=== PATIENT | male | born 1995 | race Caucasian/White ===

== ENCOUNTER 2016-09-20 03:31 | Emergency (ER) | payer BC ==
[~2016-09-20] VITALS: Ht 175.3 cm; Wt 72.6 kg
[~2016-09-20 03:31] MED LIST: IBUP-1955 PO
[2016-09-20] MEDS ORDERED: IV SET PRIMARY 1 EA INFUS.SET MC ONE (04:23)
[2016-09-20] MEDS ORDERED: IV NS 0.9% 1,000 ML ONE (04:23)
[2016-09-20] MEDS ORDERED: ONDANSETRON HCL/PF 4 MG/2 ML VIAL ONE (04:23)
[2016-09-20] MEDS ORDERED: ONDANSETRON HCL/PF 4 MG/2 ML VIAL IVP ONE (04:30)
[2016-09-20] MEDS ORDERED: IV NS 0.9% 1,000 ML BAG IV ONE (04:30)
[2016-09-20 04:43] LABS: BASOPHILS % (AUTO) 0.2 % (0.0-2.0); DIFF TOTAL % 100 %; EOSINOPHILS # (AUTO) 0.3 /CMM (0.0-0.7); EOSINOPHILS % (AUTO) 4.2 % (0.0-6.0); HEMATOCRIT 49 % (39-51); HEMOGLOBIN 16.5 g/dL (13.5-17.5); LYMPHOCYTES # (AUTO) 1.7 /CMM (0.8-4.8); LYMPHOCYTES % (AUTO) 20.3 % (20.0-44.0); MEAN CORPUSCULAR HEMOGLOBIN 32 PG (26.0-33.0); MEAN CORPUSCULAR HGB CONC 34 g/dl (31.0-36.0); MEAN CORPUSCULAR VOLUME 96 fL (80-96); MONOCYTES # (AUTO) 0.5 /CMM (0.1-1.30); MONOCYTES % (AUTO) 6.1 % (2.0-12.0); NEUTROPHILS # (AUTO) 5.8 /CMM (1.8-8.9); NEUTROPHILS % (AUTO) 69.2 % (43.0-81.0); PLATELET COUNT (AUTO) 345 /CMM (150-450); RED BLOOD CELL COUNT(AUTO) 5.15 MIL/uL (4.5-6.0); WHITE BLOOD COUNT (AUTO) 8.4 K/uL (4.3-11.0)
[2016-09-20 04:58] LABS: CALCIUM, SERUM 9.2 mg/dL (8.5-10.1); CREATININE 1.1 mg/dL (0.6-1.3); POTASSIUM 3.8 mmol/L (3.5-5.1)
[2016-09-20 05:04] LABS: ALBUMIN 4.4 g/dL (3.4-5.0); BILIRUBIN,DIRECT 0.2 mg/dL (0.0-0.2); BILIRUBIN,TOTAL 0.7 mg/dL (0.2-1.0); INDIRECT BILIRUBIN 0.5 mg/dL (0.0-1.1); SALICYLATE 4.2 mg/dL (2.8-20.0); TOTAL PROTEIN, SERUM 7.8 g/dL (6.4-8.2)
[2016-09-20 05:11] LABS: THYROID STIMULATING HORMONE 1.079 uIU/mL (0.358-3.74)
[2016-09-20 05:12] LABS: CANNABINOID, URINE NEGATIVE (NEGATIVE); PHENCYCLIDINE SCREEN,URINE NEGATIVE (NEGATIVE)
[2016-09-20 06:55] VITALS: BP 123/69
== END 2016-09-20 11:36 | disposition home or self-care (01) ==
LOC: ER 03:34
DX: F41.8 Other specified anxiety disorders (principal); F17.200 Nicotine dependence, unspecified, uncomplicated; F19.10 Other psychoactive substance abuse, uncomplicated
CPT/HCPCS: 36415; 80048; 80076; 80305; 84443; 85025; 93005; 96361; 96374; 99285; A4606; G0480; G0481; G0482; J2405; J7030; Z7610; G6038-TC; G6039-TC; G6040-TC

== ENCOUNTER 2024-02-10 19:24 | Emergency (ER) | payer OTHER ==
[~2024-02-10] VITALS: Ht 177.8 cm; Wt 81.6 kg
[2024-02-10] MEDS ORDERED: ONDANSETRON HCL/PF 4 MG/2 ML VIAL ONE (19:34)
[2024-02-10] MEDS: ONDANSETRON HCL/PF 4 MG/2 ML VIAL IVP ONE (19:45)
[2024-02-10] MEDS: IV NS 0.9% 1,000 ML BAG IV ONE (19:45)
[2024-02-10 20:06] LABS: BASOPHILS % (AUTO) 0.7 % (0.0-2.0); EOSINOPHILS # (AUTO) 0.4 K/uL (0.0-0.7); EOSINOPHILS % (AUTO) 7.3 % (0.0-6.0); HEMATOCRIT 40 % (39-51); HEMOGLOBIN 13.6 g/dL (13.5-17.5); LYMPHOCYTES # (AUTO) 2.1 K/uL (0.8-4.8); LYMPHOCYTES % (AUTO) 41.3 % (20.0-44.0); MEAN CORPUSCULAR HEMOGLOBIN 32 PG (26.0-33.0); MEAN CORPUSCULAR HGB CONC 34 g/dl (31.0-36.0); MEAN CORPUSCULAR VOLUME 94 fL (80-96); MONOCYTES # (AUTO) 0.3 K/uL (0.1-1.30); MONOCYTES % (AUTO) 6.6 % (2.0-12.0); NEUTROPHILS # (AUTO) 2.3 K/uL (1.8-8.9); NEUTROPHILS % (AUTO) 44.1 % (43.0-81.0); PLATELET COUNT (AUTO) 311 K/uL (150-450); RED BLOOD CELL COUNT(AUTO) 4.24 MIL/uL (4.5-6.0); RED CELL DISTRIBUTION WIDTH 14.9 % (11.5-15.0); WHITE BLOOD COUNT (AUTO) 5.2 K/uL (4.3-11.0)
[2024-02-10 20:18] LABS: CREATININE 0.9 mg/dL (0.6-1.3); POTASSIUM 3.3 mmol/L (3.5-5.1)
[2024-02-10 20:25] LABS: ALBUMIN 3.4 g/dL (3.4-5.0); BILIRUBIN,DIRECT 0.1 mg/dL (0.0-0.2); BILIRUBIN,TOTAL 0.3 mg/dL (0.2-1.0); SALICYLATE 0.6 mg/dL (2.8-20.0); TOTAL PROTEIN, SERUM 6.7 g/dL (6.4-8.2)
[2024-02-10] MEDS ORDERED: ONDA4TAB5 PO (20:35)
[2024-02-10] MEDS ORDERED: CHLO25CA22 PO (21:02)
[2024-02-11 05:18] VITALS: BP 131/71; TEMP 98.1; O2SAT 97
== END 2024-02-11 05:18 | disposition home or self-care (01) ==
LOC: ER 19:26
DX: F10.129 Alcohol abuse with intoxication, unspecified (principal); R11.0 Nausea; F32.A Depression, unspecified; F41.9 Anxiety disorder, unspecified; F19.10 Other psychoactive substance abuse, uncomplicated; F17.200 Nicotine dependence, unspecified, uncomplicated; Y90.8 Blood alcohol level of 240 mg/100 ml or more
CPT/HCPCS: 99285; 96374; 96361; 85025; 80048; 80076; 36415; 80143; 80320; J2405; J7030; G0480

== ENCOUNTER 2024-02-12 14:15 | Emergency (ER) | payer OTHER ==
[~2024-02-12] VITALS: Ht 175.3 cm; Wt 83.9 kg
[~2024-02-12 14:15] MED LIST changes: +CHLO25CA22 PO; +ONDA4TAB5 PO
[2024-02-12 19:01] VITALS: BP 120/68; TEMP 98.4; O2SAT 98
== END 2024-02-12 19:02 | disposition home or self-care (01) ==
LOC: ER 14:18
DX: F10.129 Alcohol abuse with intoxication, unspecified (principal); M79.644 Pain in right finger(s); F32.A Depression, unspecified; F17.200 Nicotine dependence, unspecified, uncomplicated; Z90.49 Acquired absence of other specified parts of digestive tract; Z79.899 Other long term (current) drug therapy
CPT/HCPCS: 82962-TC

== ENCOUNTER 2024-05-05 13:19 | Emergency (ER) | payer OTHER ==
[~2024-05-05] VITALS: Ht 170.2 cm; Wt 81.6 kg
[2024-05-05 13:43] VITALS: BP 122/78; TEMP 98.2
--- NOTE | 2024-05-05 13:43 | NUR ---
From [employer]EE/EMPLOYEE "slipped/fall at work (water in floor)"
[2024-05-05] MEDS ORDERED: ACETAMINOPHEN ES 500 MG TABLET ONE (14:21)
[2024-05-05] MEDS: ACETAMINOPHEN ES 500 MG TABLET PO ONE (14:24)
--- NOTE | 2024-05-05 15:15 | NUR ---
Patient discharged to home in stable condition. Written and verbal after care instructions given. Patient verbalizes understanding of instruction.
[2024-05-05 15:24] VITALS: O2SAT 95
== END 2024-05-05 15:27 | disposition home or self-care (01) ==
LOC: ER 13:19
DX: M25.562 Pain in left knee (principal); F32.A Depression, unspecified; F17.200 Nicotine dependence, unspecified, uncomplicated; Z98.890 Other specified postprocedural states; Z79.1 Long term (current) use of non-steroidal anti-inflammatories (NSAID); Z79.899 Other long term (current) drug therapy
CPT/HCPCS: 73564-TC

== ENCOUNTER 2024-08-22 22:41 | Emergency (ER) | payer OTHER ==
[~2024-08-22] VITALS: Ht 167.6 cm; Wt 70.3 kg
[2024-08-23 00:14] VITALS: BP 127/85; O2SAT 99
== END 2024-08-23 00:19 | disposition home or self-care (01) ==
LOC: ER 22:48
DX: F10.129 Alcohol abuse with intoxication, unspecified (principal); F17.200 Nicotine dependence, unspecified, uncomplicated; F32.A Depression, unspecified; F41.9 Anxiety disorder, unspecified; Z88.8 Allergy status to other drugs, medicaments and biological substances; Y90.9 Presence of alcohol in blood, level not specified
CPT/HCPCS: 82962-TC

== ENCOUNTER 2025-07-10 03:59 | Emergency (ER) | payer OTHER ==
[~2025-07-10] VITALS: Ht 175.3 cm; Wt 86.2 kg
[2025-07-10] MEDS ORDERED: KETOROLAC TROMETHAMINE INJ 30 MG/ML VIAL ONE (04:40)
[2025-07-10] MEDS: KETOROLAC TROMETHAMINE INJ 30 MG/ML VIAL IM ONE (04:46)
[2025-07-10] MEDS ORDERED: CYCLOBENZAPRINE 10 MG TABLET ONE (06:49)
[2025-07-10] MEDS ORDERED: HYDROCODONE/APAP 5/325MG TABLET ONE (06:49)
[2025-07-10] MEDS ORDERED: LIDOCAINE 5% (PATCH) 1 EA PATCH TP ONE (06:49)
[2025-07-10] MEDS: CYCLOBENZAPRINE 10 MG TABLET PO ONE (06:54)
[2025-07-10] MEDS: LIDOCAINE 5% (PATCH) 1 EA PATCH TP STA (06:54)
[2025-07-10] MEDS: HYDROCODONE/APAP 5/325MG TABLET PO ONE (06:54)
[2025-07-10] MEDS ORDERED: METH4TAB17 PO (06:58)
[2025-07-10] MEDS ORDERED: CYCL10TA9 PO (06:58)
[2025-07-10 07:18] VITALS: BP 121/80; TEMP 98; O2SAT 99
== END 2025-07-10 07:19 | disposition home or self-care (01) ==
LOC: ER 04:02
DX: M54.40 Lumbago with sciatica, unspecified side (principal); F41.9 Anxiety disorder, unspecified; F17.200 Nicotine dependence, unspecified, uncomplicated
CPT/HCPCS: 99285; 72131; 96372; J1885; J7512